=== PATIENT | male | born 1990 | race Caucasian/White ===

== ENCOUNTER → 2021-03-30 13:36 | Outpatient (BNVA) | payer OTHER, SELFPAY | PROVIDERS: Family Provider Physician Assistant Medical; PCP Nurse Practitioner Family; Visit Provider Nurse Practitioner Family | DX: Z02.1 Encounter for pre-employment examination (principal) | CPT/HCPCS: 80307 ==

== ENCOUNTER 2023-07-31 19:57 | Emergency (ER) | payer SELFPAY ==
[2023-07-31 20:08] VITALS: BP 142/83; PULSE 91; RESP 20; TEMP 36.6; O2SAT 98
[2023-07-31 20:44] LABS: Add Urine Microscopic? NO; Charge for UA Resulting for Rev
[2023-07-31 20:52] LABS: Bilirubin Urine Neg (Negative); Blood Urine Neg (Negative); Glucose Urine UA Norm (Normal); Ketones Urine 1+ (Negative); Leukocyte Esterase Urine Negative (Negative); Nitrate Urine Negative (Negative); Protein Urine Neg (Negative); Specific Gravity, Urine 1.025 (1.005-1.030); Urine Appearance Clear (CLEAR); Urine Color Yellow (Yellow); Urobilinogen Urine Neg (Negative); pH Urine 5 (5-7)
--- NOTE | 2023-07-31 20:55 | CTR_ITS ---
PROCEDURE INFORMATION: Exam: CT Abdomen And Pelvis With Contrast Exam date and time: 07/31/2023 9:37 PM Age: 32 years old Clinical indication: Abdominal pain; Localized; Right lower quadrant (rlq); Additional info: Rlq abd pain radiates into right testicle TECHNIQUE: Imaging protocol: Computed tomography of the abdomen and pelvis with contrast. Radiation optimization: All CT scans at this facility use at least one of these dose optimization techniques: automated exposure control; mA and/or kV adjustment per patient size (includes targeted exams where dose is matched to clinical indication); or iterative reconstruction. Contrast material: OMNI 350; Contrast volume: 100 ml; Contrast route: INTRAVENOUS (IV); REPORTING DATA: Count of CT and Cardiac NM exams in prior 12 months: This patient has received 0 known CTs and 0 known cardiac nuclear medicine studies in the 12 months prior to the current study. COMPARISON: No relevant prior studies available. RADIATION DOSE METRICS: Total DLP (mGy-cm): 1708 FINDINGS: Liver: Normal. No mass. Gallbladder and bile ducts: Normal. No calcified stones. No ductal dilation. Pancreas: Normal. No ductal dilation. Spleen: Normal. No splenomegaly. Adrenal glands: Normal. No mass. Kidneys and ureters: Normal. No hydronephrosis. Stomach and bowel: Unremarkable. No obstruction. No mucosal thickening. Appendix: No evidence of appendicitis. Postsurgical changes in the right lower quadrant of the abdomen, suggestive of previous appendectomy. Intraperitoneal space: Unremarkable. No free air. No significant fluid collection. Vasculature: Unremarkable. No abdominal aortic aneurysm. Lymph nodes: Unremarkable. No enlarged lymph nodes. Urinary bladder: Unremarkable as visualized. Reproductive: Unremarkable as visualized. Bones/joints: Unremarkable. No acute fracture. Soft tissues: Unremarkable. CT/CT abdomen pelvis w con* [id number] IMPRESSION: No acute findings.
--- NOTE | 2023-07-31 21:14 | ED_ITS ---
HPI - Male Genitourinary General: Chief complaint: Urogenital-Male Stated complaint: Pain Where Surgery Was and Rt Testicle Time Seen by Provider: 07/31/23 20:22 History of Present Illness: Patient presents to the ER with complaints of right lower quadrant abdominal pain that radiates into his right testicle and now down his right leg. Patient states this pain has been going on for 13 years since he has his appendix removed and had mesh placed. Patient has had several ultrasounds and x-rays done in the past. Patient states the pain is worse today than it ever has been and patient is nauseated. Patient says the pain is localized to the right lower quadrant and then radiates pain into his right testicle and leg. The pain is worse with palpation. Patient denies any urinary symptoms, penile discharge, bowel symptoms. Review of Systems General: Reports: 10 or more systems reviewed and unremarkable except in HPI and below Physical Exam Const: COMMON NORMALS: no acute distress, average body habitus, patient oriented x3, no limitations, healthy appearing and alert HENMT: COMMON NORMALS: normocephalic, atraumatic, hearing grossly normal bilaterally, external ears normal, Normal external nose present, moist oral mucous membranes and oropharynx normal HEAD & SCALP: normocephalic and atraumatic NOSE: Normal external nose present EXTERNAL EAR: Yes external ears normal Neck/C-Spine: COMMON NORMALS: full ROM, no lymphadenopathy, supple, no meningeal signs, no JVD and Thyroid normal THYROID: Thyroid normal Chest: COMMONS NORMALS: normal inspection of the chest and normal palpation of entire chest wall Resp: COMMON NORMALS: normal respiratory effort, No retractions, No use of accessory muscles and clear to auscultation bilaterally AUSCULTATION: clear to auscultation bilaterally Cardio: COMMON NORMALS: no JVD, regular rate, regular rhythm, S1 normal heart sound present, S2 normal heart sound present, No gallops present (Cardio), No clicks present (Cardio), No murmurs present (Cardio) and No rub (Cardio) RATE: regular rate RHYTHM: regular rhythm HEART SOUNDS: S1 normal heart sound present and S2 normal heart sound present GI: COMMON NORMALS: Normal to inspection, nondistended, normoactive bowel sounds present, Soft to palpation, No hepatosplenomegaly present and no masses; negative for non-tender (Tender to palpate right lower quadrant) PALPATION: Yes Soft to palpation and Yes No hepatosplenomegaly present Neuro: COMMON NORMALS: patient oriented x3 SENSORIUM/ORIENTATION: Yes alert MENINGEAL SIGNS: Yes no meningeal signs Course Vital Signs: Vital signs: Vital Signs Temperature 98 F 07/31/23 20:08 Pulse Rate 91 07/31/23 20:08 Respiratory Rate 20 H 07/31/23 20:08 Blood Pressure 142/83 07/31/23 20:08 Pulse Oximetry 98 07/31/23 20:08 MDM - Male Medical Decision Making Lab work was obtained including urine which was essentially negative. Abdomen and pelvis CT scan with contrast showed no acute findings. Patient was given 30 mg Toradol IV and will be discharged to follow-up with his PCP for further evaluation and treatment. Differential Diagnosis Unlikely urinary tract infection, priapism, urethritis, epididymitis, genital herpes simplex, prostatitis, acute retention of urine or inguinal hernia Medical Records I reviewed the patient's medical records. Lab Data I reviewed the patient's lab results. 07/31/23 21:16 07/31/23 21:16 Radiology Impressions Abdomen/Pelvis CT 07/31/23 20:55 IMPRESSION: No acute findings. Laboratory Results WBC 9.58 10^3/uL (3.29-11.43) 07/31/23 21:16 RBC 5.36 10^6/uL (3.85-5.65) 07/31/23 21:16 Hgb 15.90 g/dL (11.27-16.99) 07/31/23 21:16 Hct 47.8 % (37-53) 07/31/23 21:16 MCV 89.2 fl (82-101) 07/31/23 21:16 MCH 29.7 pg (27-33) 07/31/23 21:16 MCHC 33.3 g/dL (30-55) 07/31/23 21:16 RDW 12.4 % (12.1-15.1) 07/31/23 21:16 Plt Count 230 10^3/cmm (157-399) 07/31/23 21:16 MPV 10.4 fL (7.4-10.4) 07/31/23 21:16 Neut % (Auto) 51.6 % 07/31/23 21:16 Lymph % (Auto) 31.8 % 07/31/23 21:16 [place] % (Auto) 10.2 % 07/31/23 21:16 Eos % (Auto) 5.0 % 07/31/23 21:16 Baso % (Auto) 1.1 % 07/31/23 21:16 Neut # (Auto) 4.93 10^3/uL (1.8-7.7) 07/31/23 21:16 Lymph # (Auto) 3.1 10^3/uL (0.8-4.8) 07/31/23 21:16 [place] # (Auto) 1.0 10^3/uL (0.2-0.9) H 07/31/23 21:16 Eos # (Auto) 0.5 10^3/uL (0.0-0.8) 07/31/23 21:16 Baso # (Auto) 0.1 10^3/uL (0.0-0.1) 07/31/23 21:16 Nucleated RBC % (auto) 0 % 07/31/23 21:16 Nucleated RBCs # 0.0 /100WBC 07/31/23 21:16 Sodium 137 mmol/L (136-145) 07/31/23 21:16 Potassium 3.7 mmol/L (3.5-5.1) 07/31/23 21:16 Chloride 101 mmol/L (98-107) 07/31/23 21:16 Carbon Dioxide 26 mmol/L (22-29) 07/31/23 21:16 Anion Gap 13.7 (5-19) 07/31/23 21:16 BUN 12 mg/dL (6-20) 07/31/23 21:16 Creatinine 0.8 mg/dL (0.7-1.2) 07/31/23 21:16 GFR Calculation 111.3 mL/min (90-130) 07/31/23 21:16 Glucose 128 mg/dL (65-115) H 07/31/23 21:16 Calculated Osmolality 285 mOsm/kg (285-295) 07/31/23 21:16 Calcium 9.3 mg/dL (8.5-10.5) 07/31/23 21:16 Total Bilirubin 0.5 mg/dL (0.15-1.2) 07/31/23 21:16 AST 28 U/L (0-40) 07/31/23 21:16 ALT 42 U/L (0-41) H 07/31/23 21:16 Alkaline Phosphatase 61 U/L (40-130) 07/31/23 21:16 Total Protein 7.0 g/dL (6.6-8.7) 07/31/23 21:16 Albumin 4.1 g/dL (3.5-5.2) 07/31/23 21:16 Globulin 2.9 g/dL (1.3-4.6) 07/31/23 21:16 Urine Color Yellow (Yellow) 07/31/23 20:38 Urine Appearance Clear (CLEAR) 07/31/23 20:38 Urine pH 5 (5-7) 07/31/23 20:38 Ur Specific [place] 1.025 (1.005-1.030) 07/31/23 20:38 Urine Protein Neg (Negative) 07/31/23 20:38 Urine Glucose (UA) Norm (Normal) 07/31/23 20:38 Urine Ketones 1+ (Negative) H 07/31/23 20:38 Urine Blood Neg (Negative) 07/31/23 20:38 Urine Nitrate Negative (Negative) 07/31/23 20:38 Urine Bilirubin Neg (Negative) 07/31/23 20:38 Urine Urobilinogen Neg mg/dL (Negative) 07/31/23 20:38 Ur Leukocyte Esterase Negative (Negative) 07/31/23 20:38 All radiology interpretation(s) finalized by discharge Discharge Plan Discharge Patient Disposition: Home Clinical Impression: Abdominal pain, chronic, right lower quadrant Condition: Stable Discharge Orders: Discharge ED (Routine); Ordered 07/31/23 Ordered By: Oswaldo Payne Referrals: Eleuterio Frausto FNP [Primary Care Provider] - 1 week Patient Instructions: Abdominal Pain (ED) Activity Restrictions/Additional Instructions: Your blood work and your CT scan were essentially normal and did not show any acute cause of your chronic right lower quadrant abdominal pain. Please follow- up with your family practice physician for further evaluation and testing. 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
[2023-07-31 21:20] LABS: Basophils # 0.1 10^3/uL (0.0-0.1); Basophils % 1.1 %; Eosinophils # 0.5 10^3/uL (0.0-0.8); Hematocrit 47.8 % (37-53); Lymphocytes # 3.1 10^3/uL (0.8-4.8); Lymphocytes % 31.8 %; Mean Corpuscular HGB Conc 33.3 g/dL (30-55); Mean Corpuscular Hemoglobin 29.7 pg (27-33); Mean Corpuscular Volume 89.2 fl (82-101); Mean Platelet Volume 10.4 fL (7.4-10.4); Monocytes % 10.2 %; Neutrophils # 4.93 10^3/uL (1.8-7.7); Neutrophils % 51.6 %; Nucleated Red Blood Cells % 0 %; Platelet Count 230 10^3/cmm (157-399); Red Blood Count 5.36 10^6/uL (3.85-5.65); Red Cell Distribution Width 12.4 % (12.1-15.1); White Blood Count 9.58 10^3/uL (3.29-11.43)
[2023-07-31 21:37] LABS: Alanine Aminotransferase 42 U/L (0-41); Albumin Level 4.1 g/dL (3.5-5.2); Alkaline Phosphatase 61 U/L (40-130); Anion Gap 13.7 (5-19); Aspartate Amino Transferase 28 U/L (0-40); Blood Urea Nitrogen 12 mg/dL (6-20); Calcium 9.3 mg/dL (8.5-10.5); Carbon Dioxide 26 mmol/L (22-29); Chloride 101 mmol/L (98-107); Globulin 2.9 g/dL (1.3-4.6); Glomerular Filtration Rate 111.3 mL/min (90-130); Glucose 128 mg/dL (65-115); Osmolality Calculated 285 mOsm/kg (285-295); Potassium 3.7 mmol/L (3.5-5.1); Sodium 137 mmol/L (136-145); Total Bilirubin 0.5 mg/dL (0.15-1.2)
[2023-07-31] MEDS: iohexol 350 mg/mL 500 mL Btl (per mL) IV (21:39)
[2023-07-31] MEDS: ketorolac 30 mg/mL INJ IVP (22:25)
[2023-07-31 22:30] VITALS: BP 151/88; PULSE 77; O2SAT 99
== END 2023-07-31 22:40 | disposition home or self-care (01) ==
PROVIDERS: Emergency Provider Emergency Medicine; PCP Nurse Practitioner Family
DX: G89.29 Other chronic pain (principal); R10.31 Right lower quadrant pain
CPT/HCPCS: 74177; 80053; 81003; 85025; 96374; 99285; J1885; Q9967

== ENCOUNTER 2024-08-30 12:40 | Emergency (ER) | payer SELFPAY ==
[2024-08-30 12:53] VITALS: BP 144/85; PULSE 69; RESP 17; TEMP 36.7; O2SAT 98; BMI 38.6
--- NOTE | 2024-08-30 14:15 | ED_ITS ---
HPI - Back Pain/Injury General: Chief Complaint: Back Pain/Injury Stated Complaint: back pain Time Seen by Provider: 08/30/24 14:01 History of Present Illness: Arden Malhotra is a 33-year-old male that presents to the emergency department with complaints of right sided back pain that radiates down the right lower extremity. Onset of symptoms 4 days ago. He says that he was working with a horse and pulled a muscle in his back. Denies trauma or isolated injury to the area. His symptoms over the last 4 days have worsened. He was seen at another facility and started on cyclobenzaprine but symptoms have not improved. Related Data Home Medications Medication Instructions Recorded Confirmed metformin 500 mg tablet,extended 2,000 mg PO BEDTIME 08/30/24 08/30/24 release 24 hr Previous Rx's Medication Instructions Recorded ketorolac 10 mg tablet 10 mg PO Q8H 3 days #9 tabs 08/30/24 methocarbamol 500 mg tablet 1,000 mg (2 x 500 mg) PO Q6H PRN 08/30/24 muscle spasm #40 tabs methylprednisolone 4 mg tablets in See Rx Instructions PO .COMPLEX 08/30/24 a dose pack (Medrol (Ponce)) #21 ea Allergies Allergy/AdvReac Type Severity Reaction Status Date / Time No Known Allergies Allergy Unverified 03/30/21 13:35 Review of Systems General: Reports: 10 or more systems reviewed and unremarkable except in HPI and below Physical Exam Const: COMMON NORMALS: no acute distress, average body habitus, patient oriented x3, no limitations, healthy appearing and alert HENMT: COMMON NORMALS: normocephalic, atraumatic, hearing grossly normal bilaterally, external ears normal, Normal external nose present, moist oral mucous membranes and oropharynx normal HEAD & SCALP: normocephalic and atraumatic NOSE: Normal external nose present EXTERNAL EAR: Yes external ears normal Neck/C-Spine: COMMON NORMALS: full ROM, no lymphadenopathy, supple, no meningeal signs, no JVD and Thyroid normal THYROID: Thyroid normal Chest: COMMONS NORMALS: normal inspection of the chest and normal palpation of entire chest wall Resp: COMMON NORMALS: normal respiratory effort, No retractions and No use of accessory muscles Cardio: COMMON NORMALS: no JVD and regular rate RATE: regular rate GI: COMMON NORMALS: Normal to inspection, nondistended, normoactive bowel sounds present, Soft to palpation and no masses PALPATION: Yes Soft to palpation Neuro: COMMON NORMALS: patient oriented x3 SENSORIUM/ORIENTATION: Yes alert MENINGEAL SIGNS: Yes no meningeal signs MOTOR EXAM: 5/5 motor strength present throughout OTHER: Lumbar back pain that radiates down the right lower extremity. He does not follow a distribution and patient describes it more circumferential. He states that the pain is reproducible with movement. He has 5/5 strength in hip flexor, quad, gastroc, ant tib and toe extensors. Sensation intact to light touch. Denies numbness and tingling. Course Vital Signs: Vital signs: Vital Signs Temperature 98.0 F 08/30/24 12:53 Pulse Rate 69 08/30/24 12:53 Respiratory Rate 17 08/30/24 12:53 Blood Pressure 144/85 08/30/24 12:53 Pulse Oximetry 98 08/30/24 12:53 Oxygen Delivery Me thod Room Air 08/30/24 12:53 MDM - Back Pain/Injury Medical Decision Making Patient was evaluated in the emergency department for back pain and right lower extremity pain Patient describes more of a muscle spasm type pain. He can find a position of comfort but when he starts to change position the spasm becomes sharp and crampy. It is only on the right side. He denies 1 particular nerve distribution that the pain radiates through. He denies urinary retention, bowel retention or incontinence. He denies paresthesias. He denies falling and injuring his back. Based on imaging obtained over a year ago he does have evidence of degenerative disc disease in the lumbar spine. There is loss of disc space height at L5/S1 with foraminal stenosis. No evidence at that time of nerve root impingement or large disc herniation. I talked with patient about managing his symptoms. Were going to give him a dose of ketorolac, diazepam, Decadron. I am sending him home with a steroid pack and Robaxin. I advised him that using Robaxin instead of cyclobenzaprine might enable him to take it more often since many you do not find it as sedating as cyclobenzaprine. He agreed to trial it. I have advised the patient to also avoid additional NSAID use while taking Toradol. I will be sending him home with a 3-day course as well as the Medrol Dosepak. I advised the patient to follow-up with his primary care doctor if he does not improve as he may require more diagnostics. Patient is agreeable Patient given a pamphlet on core strengthening exercises to help reduce the incidence of this recurring in the future. All questions answered No radiology studies performed this visit Discharge Plan Discharge Patient Disposition: Home Clinical Impression: Strain of lumbar region Condition: Stable Prescriptions: New ketorolac 10 mg tablet 10 mg PO Q8H 3 Days Qty: 9 0RF methocarbamol 500 mg tablet 1,000 mg PO Q6H PRN (Reason: muscle spasm) Qty: 40 0RF methylprednisolone [Medrol (Ponce)] 4 mg tablets,dose pack See Rx Instructions .ROUTE .COMPLEX Qty: 21 0RF Rx Instructions: for 6 days No Action metformin 500 mg tablet extended release 24 hr 2,000 mg PO BEDTIME Discharge Orders: Discharge ED (Routine); Ordered 08/30/24 Ordered By: Markel Morin Referrals: Armand Frausto FNP [Primary Care Provider] - Discharge Diet: Advance as tolerated Discharge Activity: Resume usual activity Patient Instructions: Pain Management, Lower Back Exercises (ED), Core Strengthening Exercises (ED), Low Back Strain (ED) Activity Restrictions/Additional Instructions: Please return to the emergency department for new, concerning, worsening symptoms. I want you to follow-up with your primary care doctor if you do not improve. You may need additional imaging. I have sent you home with a prescription of Robaxin, methocarbamol. I have written it for 1000 mg, this is 2 tabs, every 6 hours. You can take 1-2 tabs as needed every 6 hours for muscle spasms. While this is not as sedating as other muscle relaxers, you should not make big decisions or operate heavy machinery while taking it. Do not take cyclobenzaprine, Flexeril, while taking this medication. Coding Level of Care Code ED [place] [employer] Installer for Silvana Mendes
[2024-08-30] MEDS: ketorolac 60 mg/2 mL INJ IM (14:43)
[2024-08-30] MEDS: diazePAM 5 mg Tablet PO (14:43)
[2024-08-30] MEDS: dexamethasone 10 mg/mL INJ IM (14:43)
[2024-08-30 16:09] VITALS: BP 155/100; PULSE 77; O2SAT 98
== END 2024-08-30 16:11 | disposition home or self-care (01) ==
PROVIDERS: Emergency Provider Nurse Practitioner; PCP Nurse Practitioner Family
DX: S39.012A Strain of muscle, fascia and tendon of lower back, initial encounter (principal); Z79.84 Long term (current) use of oral hypoglycemic drugs; X58.XXXA Exposure to other specified factors, initial encounter
CPT/HCPCS: 96372; 99284; J1100; J1885